=== PATIENT | male | born 2000 | race American Indian/Alaskan Native ===

== ENCOUNTER 2022-12-03 15:11 | Emergency (ER) | payer OTHER ==
[~2022-12-03] VITALS: Ht 182.9 cm; Wt 72.6 kg
[2022-12-03 15:24] VITALS: BP 133/93
== END 2022-12-03 17:01 | disposition home or self-care (01) ==
LOC: ER 15:11
DX: L55.0 Sunburn of first degree (principal); T75.89XA Other specified effects of external causes, initial encounter; X30.XXXA Exposure to excessive natural heat, initial encounter
CPT/HCPCS: 99284